=== PATIENT | male | born 2000 | race American Indian/Alaskan Native ===

== ENCOUNTER 2024-06-09 19:45 | Emergency (ER) | payer OTHER ==
[~2024-06-09] VITALS: Ht 177.8 cm; Wt 68.0 kg
[2024-06-09] MEDS ORDERED: CIPRO500 MG PO (20:25)
[2024-06-09] MEDS ORDERED: TETANUS DIPHTHERIA TOX. ADSOR 5 ML VIAL IM ONE (20:27)
[2024-06-09] MEDS ORDERED: LIDOCAINE HCL 1% 10ML VIAL ONE (20:27)
[2024-06-09] MEDS ORDERED: CEFTRIAXONE SODIUM 1,000 MG VIAL ONE (20:27)
[2024-06-09] MEDS ORDERED: CEFTRIAXONE SODIUM 1,000 MG VIAL IM ONE (20:30)
[2024-06-09] MEDS ORDERED: TETANUS & DIPHTHERIA TOX,ADULT 0.5 ML VIAL IM ONE (20:30)
== END 2024-06-09 20:57 | disposition home or self-care (01) ==
LOC: ER 19:46
DX: S91.342A Puncture wound with foreign body, left foot, initial encounter (principal); W45.0XXA Nail entering through skin, initial encounter
CPT/HCPCS: 90471; 90714; 96372; 99282; J0696